=== PATIENT | female | born 1990 | race Caucasian/White ===

== ENCOUNTER → 2017-03-31 | Outpatient (CLI) | payer OTHER ==
[2017-03-31 11:13] LABS: BASO % 0.8 %; BASO ABS # 0.05 K/uL (0-0.2); COMPLETE YES; EOS % 1.4 %; HEMATOCRIT 40.7 % (37-47); IG% 0.2 %; LYMPH % 40.2 %; LYMPH ABS # 2.67 K/uL (1.2-3.4); MEAN CORPUSCULAR HEMOGLOBIN 28.5 pg (25-34); MEAN CORPUSCULAR HGB CONC 33.2 g/dl (32-36); MEAN PLATELET VOLUME 10.1 fL (7.4-10.4); MONO % 7.2 %; NEUT % 50.2 %; PLATELET COUNT 339 K/uL (130-400); RED BLOOD COUNT 4.73 M/uL (4.2-5.4); WHITE BLOOD COUNT 6.65 K/uL (4.8-10.8)
[2017-03-31 11:31] LABS: ALT/SGPT 14 U/L (12-78); BLOOD UREA NITROGEN 11 mg/dl (7-18); BUN/CREATININE RATIO 14.7 (10-20); CALCIUM 9.1 mg/dl (8.5-10.1); CARBON DIOXIDE 25 mmol/L (21-32); CHLORIDE 107 mmol/L (98-107); CHOLESTEROL 167 mg/dl (0-200); CREATININE 0.76 mg/dl (0.60-1.20); GLUCOSE 85 mg/dl (70-99); POTASSIUM 4.2 mmol/L (3.5-5.1); SODIUM 139 mmol/L (136-145); TRIGLYCERIDES 80 mg/dl (0-150); VERY LOW DENSITY LIPOPROT CALC 16 mg/dl
[2017-03-31 11:42] LABS: ALB/GLOB RATIO 0.9 (0.9-2); ALKALINE PHOSPHATASE 101 U/L (45-117); AST/SGOT 14 U/L (15-37); CHOLESTEROL/HDL RATIO 2.4; HDL CHOLESTEROL 71 mg/dl; LDL CHOLESTEROL CALCULATED 80 mg/dl
== END | disposition home or self-care (01) ==
LOC: C.LABBC 09:42
PROVIDERS: ATTEND Neuromusculoskeletal Medicine & OMM
DX: Z00.00 Encounter for general adult medical examination without abnormal findings (principal); F42.9 Obsessive-compulsive disorder, unspecified; E66.9 Obesity, unspecified

== ENCOUNTER → 2017-06-08 | Day surgery (SDC) | payer OTHER ==
[~2017-06-08] VITALS: Ht 170.2 cm; Wt 101.8 kg
[~2017-06-08] MED LIST: ALBU18002; ASPI-390; ATROPINE SULFATE 0.1 MG/ML 5ML SYR IV PRN; BUPIVACAINE/EPINEPHRINE 0.5% MPF 1:200,000 30 ML VIAL ONE; CIPROFLOXACIN / D5W 400 MG IV SCH; CIPROFLOXACIN 400MG / 200ML D5W ONE; CITA10TA4 PO; EpHEDrine SULFATE INJ 50 MG/ML AMP IV PRN; FENTANYL CITRATE INJ 50 MCG/1 ML 2 ML VIAL IV PRN; FENTANYL CITRATE INJ 50 MCG/1 ML 2 ML VIAL ONE; FLUMAZENIL 0.1 MG/1 ML 10 ML VIAL IV PRN; HYDR-5688 PO; HYDROCODONE/ACETAMOPHEN 5/325MG TAB PO PRN; HYDROmorphone INJ 2 MG/ML SYR/VIAL IV PRN; KLN5X; LABETALOL HCL IV 5 MG/ML 20ML IV PRN; LACTATED RINGER'S 1000ML 1,000 ML IV SCH; LIDOCAINE HCL 2% 2 ML VIAL (20MG/ML) ONE; MEPERIDINE HCL 25 MG/ML CARP IV PRN; MIDAZOLAM HCL 1 MG/ML 2ML VIAL ONE; MoRPHine SULFATE 2 MG/ML CARP IV PRN; NALOXONE HCL 0.4 MG/1 ML VIAL/CARP IV PRN; ONDANSETRON INJ 2 MG/ML 2 ML VIAL IV PRN; ONDANSETRON INJ 2 MG/ML 2 ML VIAL ONE; PATIENT'S ALLERGY INFO NEEDS ENTERED SCH; PHENYLEPHRINE 100MCG/ML 5ML SYR IV PRN; PROPOFOL IV EMULSION 10 MG/ML 20 ML VIAL IV ONE; VENL100T2 PO
[2017-06-08 10:11] VITALS: Ht 170.2 cm; Wt 101.8 kg
--- NOTE | 2017-06-08 12:22 | History & Physical Bridge Note ---
H&P Re-Evaluation Bridge Note: I have examined the patient, reviewed the History & Physical and in the interval since the performance of the History & Physical I have noted the following changes of clinical significance: No changes noted
--- NOTE | 2017-06-08 12:39 | Discharge Instructions ---
Discharge Instructions Date of Service Jun 08, 2017. Visit Reason for Visit: Lipoma Upper Back Discharge Discharge Diagnosis / Problem: lipoma excision Discharge Goals Goal(s): Decrease discomfort Activity Recommendations Activity Limitations: as noted below Shower/Bathe: no limitations Anesthesia . Post Anesthesia Instructions: If you have had General Anesthesia or IV Sedation: * Do not drive today. * Resume driving when surgeon permits. * Do not make important decisions or sign legal documents today. * Call surgeon for: 1. Temperature elevations greater than 101 degrees F. 2. Uncontrollable pain. 3. Excessive bleeding. 4. Persistent nausea and vomiting. 5. Medication intolerance (nausea, vomiting or rash). * For nausea and vomiting use only clear liquids such as: tea, soda, bouillon until nausea subsides, then gradually increase diet as tolerated. * If you have any concerns or questions, call your surgeon's office. If physician is unavailable and it is an emergency, call 911 or go to the nearest emergency room. . Instructions / Follow-Up Instructions / Follow-Up Dr. Soria in 1-2 weeks as planned, call [phone] for any questions Diet Recommendations Recommended Home Diet: no limitations Pending Studies Studies pending at discharge: yes List of pending studies: pathology Medical Emergencies . Who to Call and When: Medical Emergencies: If at any time you feel your situation is an emergency, please call 911 immediately. . Non-Emergent Contact Non-Emergency issues call your: Surgeon Call Non-Emergent contact if: you have a fever, temperature is above 101.5, your pain is not controlled, wound has increased redness, you have any medication questions . . "Provider Documentation" section prepared by Uriel Olivarez. .
[2017-06-08 13:15] VITALS: TEMP 36.5
--- NOTE | 2017-06-08 13:17 | [facility] Operative Report ---
Operative Report Operative Date Jun 08, 2017. Pre-Operative Diagnosis Upper Back Lipoma Post-Operative Diagnosis Same Procedure(s) Performed Upper Back Lipoma Excision approx [address] Elías Soria Supervisor Whipped Topping Surgeon(s) Dylon Zeng PA-C Estimated Blood Loss 5 cc Findings simple lipoma Specimens A. Upper Back Lipoma Anesthesia mac/marcaine Complication(s) None Disposition Recovery Room / PACU Description of Procedure After informed consent was obtained the patient was taken to the operating room and placed in a prone position. IV sedation was administered by anesthesia and titrated to effect. The upper back was then sterilely prepped and draped in usual fashion. Marcaine was injected around the area of the visible and palpable lipoma to create a field block. I then made a vertical incision over with a 15 blade scalpel and carried it down through the soft tissue using electrocautery. We found a well encapsulated simple lipoma. I was able used traction countertraction and electrocautery to remove it from surrounding tissue. Was passed off and one piece. Any bleeding points were controlled using electrocautery. We thoroughly irrigated the wound and close it multiple layers using 2-0 Vicryl for the deep layers and 3-0 Monocryl for the skin. Benzoin and Steri-Strips were placed as well as a gauze dressing the patient was awaken and transferred recovery in stable condition. the lesion measured approx 4-5 cm in diameter My physician's community program assistant was present throughout the case. He prepped the patient and assisted with holding retractors as well as traction on the specimen during dissection. He also help close the wound both the deep and superficial layers as well as applied the dressing I attest to the content of the Intraoperative Record and any orders documented therein. Any exceptions are noted below.
--- NOTE | 2017-06-08 13:23 | Anesthesia Progress Nt - [facility] ---
Anesthesia Post Op Note Date & Time Jun 08, 2017 at 13:23 Vital Signs Pain Intensity: 0 Vital Signs Past 12 Hours Date Time Temp Pulse Resp B/P (MAP) Pulse Ox O2 Delivery O2 Flow Rate FiO2 06/08/17 13:15 36.5 104 18 126/81 (96) 98 Room Air 06/08/17 10:11 36.8 102 18 113/71 (85) 98 Room Air Notes Mental Status: alert / awake / arousable, participated in evaluation Pt Amnestic to Procedure: Yes Nausea / Vomiting: adequately controlled Pain: adequately controlled Airway Patency, RR, SpO2: stable & adequate BP & HR: stable & adequate Hydration State: stable & adequate Anesthetic Complications: no major complications apparent
[2017-06-08 13:46] VITALS: BP 124/85; PULSE 94; O2SAT 97
== END | disposition home or self-care (01) ==
LOC: X.SURG 09:41
PROVIDERS: ATTEND Surgery
DX: D17.1 Benign lipomatous neoplasm of skin and subcutaneous tissue of trunk (principal); F41.8 Other specified anxiety disorders; F42.9 Obsessive-compulsive disorder, unspecified; E66.9 Obesity, unspecified; Z79.899 Other long term (current) drug therapy; Z83.3 Family history of diabetes mellitus; Z80.0 Family history of malignant neoplasm of digestive organs; Z82.49 Family history of ischemic heart disease and other diseases of the circulatory system; Z80.42 Family history of malignant neoplasm of prostate

== ENCOUNTER 2017-09-08 23:20 | Emergency (ER) | payer OTHER ==
[~2017-09-08] VITALS: Ht 170.2 cm; Wt 103.8 kg
[~2017-09-08 23:20] MED LIST changes: -ASPI-390; -ATROPINE SULFATE 0.1 MG/ML 5ML SYR IV PRN; -BUPIVACAINE/EPINEPHRINE 0.5% MPF 1:200,000 30 ML VIAL ONE; -CIPROFLOXACIN / D5W 400 MG IV SCH; -CIPROFLOXACIN 400MG / 200ML D5W ONE; -EpHEDrine SULFATE INJ 50 MG/ML AMP IV PRN; -FENTANYL CITRATE INJ 50 MCG/1 ML 2 ML VIAL IV PRN; -FENTANYL CITRATE INJ 50 MCG/1 ML 2 ML VIAL ONE; -FLUMAZENIL 0.1 MG/1 ML 10 ML VIAL IV PRN; -HYDROCODONE/ACETAMOPHEN 5/325MG TAB PO PRN; -HYDROmorphone INJ 2 MG/ML SYR/VIAL IV PRN; -LABETALOL HCL IV 5 MG/ML 20ML IV PRN; -LACTATED RINGER'S 1000ML 1,000 ML IV SCH; -LIDOCAINE HCL 2% 2 ML VIAL (20MG/ML) ONE; -MEPERIDINE HCL 25 MG/ML CARP IV PRN; -MIDAZOLAM HCL 1 MG/ML 2ML VIAL ONE; -MoRPHine SULFATE 2 MG/ML CARP IV PRN; -NALOXONE HCL 0.4 MG/1 ML VIAL/CARP IV PRN; -ONDANSETRON INJ 2 MG/ML 2 ML VIAL IV PRN; -ONDANSETRON INJ 2 MG/ML 2 ML VIAL ONE; -PATIENT'S ALLERGY INFO NEEDS ENTERED SCH; -PHENYLEPHRINE 100MCG/ML 5ML SYR IV PRN; -PROPOFOL IV EMULSION 10 MG/ML 20 ML VIAL IV ONE
[2017-09-08 23:35] VITALS: Ht 170.2 cm; Wt 103.8 kg
--- NOTE | 2017-09-08 23:51 | EMERGENCY ROOM VISIT NOTE ---
History Report prepared by Brandon: Jad Garza Under the Supervision of: Dr. Rajiv Yanes M.D. First contact with patient: 23:40 Chief Complaint: MENTAL HEALTH EVALUATION Stated Complaint: TOOK SOME MEDS, DEPRESSED History of Present Illness The patient is a 27 year old female who presents to the Emergency Room with complaints of drug overdose that occurred 1 hour ago. The patient reports feeling sad for a long time, reports suicidal ideation, and took Melatonin tablets to go to sleep forever after having a verbal altercation. She states she currently feels sleepy. She takes Effexor (75 mg), Citalopram, and Klonopin (prescribed by ). Of note, she has not taken Klonopin in 1 month because she did not refill it. She denies being admitted for depression in the past, speaking with a counselor, or previous episodes of hurting herself. She denies abdominal pain, SOB, back pain, tingling in her hands and toes, urinary symptoms, and . Source of History: patient Onset: 1 hour ago Position: abdomen, other (global) Quality: other (altered mental status) Timing: other (1 episode of suicide attempt) Associated Symptoms: No SOB, No abdominal pain, No back pain, No urinary symptoms Note: Patient denies tingling in her hands and toes. Review of Systems See HPI for pertinent positives & negatives. A total of 10 systems reviewed and were otherwise negative. Social History Smoking Status: Never Smoker Smokeless Tobacco Use: No Alcohol Use: none Housing Status: lives with family, lives with friends Current/Historical Medications Scheduled Citalopram Hydrobromide (Citalopram Hydrobromide), 10 MG PO DAILY Venlafaxine Hcl (Effexor), 75 MG PO BID Allergies Coded Allergies: Cefaclor (Verified Allergy, Unknown, RASH, 09/09/17) Physical Exam Vital Signs Date Time Temp Pulse Resp B/P (MAP) Pulse Ox O2 Delivery O2 Flow Rate FiO2 09/09/17 07:37 36.9 117 18 115/81 100 09/09/17 07:36 36.9 117 18 115/81 100 09/09/17 07:32 117 18 115/81 100 09/09/17 06:19 69 18 98 Room Air 09/09/17 01:23 85 18 118/70 99 Room Air 09/09/17 00:02 85 18 116/80 99 Room Air 09/08/17 23:35 36.9 101 18 164/111 97 Room Air Physical Exam GENERAL: Patient is sad appearing and crying. EYES: No scleral icterus, unremarkable pupils. ENT: Mucous membranes moist, no nasal congestion. NECK: No masses appreciated, no meningismus, trachea is midline. RESPIRATORY: No dyspnea. Clear to auscultation and equal bilaterally. No wheeze , no rhonchi. CARDIOVASCULAR: Regular rate and rhythm. No murmurs, rubs, gallops appreciated. GASTROINTESTINAL: Abdomen soft, nontender, no peritonitis. Bowel sounds positive. No masses appreciated. BACK: No midline tenderness, no CVA tenderness EXTREMITIES: Normal motion all extremities, no cyanosis, no edema. NEUROLOGIC: Alert and oriented, no acute motor or sensory deficits, no focal weakness, cranial nerves grossly intact. SKIN: No rash, no jaundice, no diaphoresis. PSYCH: Patient admits to suicide attempt, suicidal ideation, and depression. Medical Decision & Procedures Laboratory Results 09/09/17 00:33 Red Blood Count 4.47, Mean Corpuscular Volume 83.9, Mean Corpuscular Hemoglobin 28.2, Mean Corpuscular Hemoglobin Concent 33.6, Mean Platelet Volume 9.4, Neutrophils (%) (Auto) 56.5, Lymphocytes (%) (Auto) 33.9, Monocytes (%) (Auto) 7.7, Eosinophils (%) (Auto) 1.2, Basophils (%) (Auto) 0.5, Neutrophils # (Auto) 4.99, Lymphocytes # (Auto) 3.00, Monocytes # (Auto) 0.68, Eosinophils # (Auto) 0.11, Basophils # (Auto) 0.04 09/09/17 00:33 Test 09/08/17 23:50 09/09/17 00:33 Urine Color YELLOW Urine Appearance CLEAR (CLEAR) Urine pH 7.0 (4.5-7.5) Urine Specific [place] 1.021 (1.000-1.030) Urine Protein NEG (NEG) Urine Glucose (UA) NEG (NEG) Urine Ketones NEG (NEG) Urine Occult Blood NEG (NEG) Urine Nitrite NEG (NEG) Urine Bilirubin NEG (NEG) Urine Urobilinogen NEG (NEG) Urine Leukocyte Esterase NEG (NEG) Urine WBC (Auto) 1-5 /hpf (0-5) Urine RBC (Auto) 0-4 /hpf (0-4) Urine Hyaline Casts (Auto) 0 /lpf (0-5) Urine Epithelial Cells (Auto) >30 /lpf (0-5) Urine Bacteria (Auto) 1+ (NEG) Urine Test NEG (NEG) Urine Opiates Screen NEG (NEG) Urine Methadone, Qualitative NEG (NEG) Urine Barbiturates NEG (NEG) Urine Phencyclidine (PCP) Level NEG (NEG) Ur Amphetamine/Methamphetamine NEG (NEG) MDMA (Ecstasy) Screen NEG (NEG) Urine Benzodiazepines Screen NEG (NEG) Urine Cocaine Metabolite NEG (NEG) Urine Marijuana (THC) NEG (NEG) White Blood Count 8.84 K/uL (4.8-10.8) Red Blood Count 4.47 M/uL (4.2-5.4) Hemoglobin 12.6 g/dL (12.0-16.0) Hematocrit 37.5 % (37-47) Mean Corpuscular Volume 83.9 fL (80-100) Mean Corpuscular Hemoglobin 28.2 pg (25-34) Mean Corpuscular Hemoglobin Concent 33.6 g/dl (32-36) Platelet Count 299 K/uL (130-400) Mean Platelet Volume 9.4 fL (7.4-10.4) Neutrophils (%) (Auto) 56.5 % Lymphocytes (%) (Auto) 33.9 % Monocytes (%) (Auto) 7.7 % Eosinophils (%) (Auto) 1.2 % Basophils (%) (Auto) 0.5 % Neutrophils # (Auto) 4.99 K/uL (1.4-6.5) Lymphocytes # (Auto) 3.00 K/uL (1.2-3.4) Monocytes # (Auto) 0.68 K/uL (0.11-0.59) Eosinophils # (Auto) 0.11 K/uL (0-0.5) Basophils # (Auto) 0.04 K/uL (0-0.2) RDW Standard Deviation 40.0 fL (36.4-46.3) RDW Coefficient of Variation 13.1 % (11.5-14.5) Immature Granulocyte % (Auto) 0.2 % Immature Granulocyte # (Auto) 0.02 K/uL (0.00-0.02) Anion Gap 8.0 mmol/L (3-11) Est Creatinine Clear Calc Drug Dose 163.9 ml/min Estimated GFR () 143.0 Estimated GFR (Non- 123.4 BUN/Creatinine Ratio 19.1 (10-20) Calcium Level 8.4 mg/dl (8.5-10.1) Total Bilirubin 0.2 mg/dl (0.2-1) Aspartate Amino Transf (AST/SGOT) 11 U/L (15-37) Alanine Aminotransferase (ALT/SGPT) 20 U/L (12-78) Alkaline Phosphatase 104 U/L (45-117) Total Protein 7.1 gm/dl (6.4-8.2) Albumin 3.3 gm/dl (3.4-5.0) Globulin 3.8 gm/dl (2.5-4.0) Albumin/Globulin Ratio 0.9 (0.9-2) Thyroid Stimulating Hormone (TSH) 2.640 uIu/ml (0.300-4.500) Salicylates Level < 1.7 mg/dl (2.8-20) Acetaminophen Level < 2 ug/ml (10-30) Ethyl Alcohol mg/dL < 3.0 mg/dl (0-3) Laboratory results as reviewed by me. Medications Administered Medications (Trade) Dose Ordered Sig/Adrienne Route Start Time Stop Time Status Last Admin Dose Admin Venlafaxine HCl (effeXOR TAB) 75 mg BID STAT PO 09/09/17 00:00 09/09/17 00:02 DC 09/09/17 00:00 75 MG ECG Per My Interpretation Indication: altered mental status, other (drug overdose) Rate (beats per minute): 83 Rhythm: normal sinus Findings: no acute ischemic change, no ectopy, other (QTc of 439; QRS of 100) ED Course 2340: The patient was evaluated in room A6. A complete history and physical exam was performed. 2350: I spoke with poison control. They agree with plan of care for the patient. 0151: I checked on the patient and she is stable. I spoke with the Case Manger. We are awaiting placement for mental health facility. 0300: Upon reevaluation, the patient is doing well. Discussed results and treatment plan with the patient. She verbalized understanding and agreement with the treatment plan. The patient will be evaluated for further management. 0411: The patient was accepted to the [facility]. Medical Decision Differential: Mood Disorder, Overdose, Infectious, Electrolyte Abnormality, Cardiac, Hepatic, Endocrine, Toxicologic, Neurologic, amongst other pathologies entertained. 27 yr old female with several weeks worsening depression who admits that she attempted to kill self by overdosing on melatonin so she would fall asleep, however she just feels groggy. She is well appearing and other than sad/ depressed in no distress. Labs, ekg unremarkable. Tyl/Jackson negative. Drug screen etoh clear. Given her nightly dose of Effexor. She was medically cleared and accepted to [place] for further management/treatment. Head Trauma GCS Score: 15 Medication Reconcilliation Current Medication List: was personally reviewed by me Blood Pressure Screening Patient's blood pressure: Elevated blood pressure Blood pressure disposition: Elevated BP felt to be situational Consults Time Called: 0150 Consulting Physician: [facility] Mental Health Clinical Audiologist Returned Call: [phone] Discussed the patient's case. The patient will be evaluated for further treatment and disposition. Impression Primary Impression: Suicide attempt Additional Impression: Depression Scribe Attestation The scribe's documentation has been prepared under my direction and personally reviewed by me in its entirety. I confirm that the note above accurately reflects all work, treatment, procedures, and medical decision making performed by me. Departure Information Referrals Frderick Armenta D.O. (PCP) Patient Instructions My [facility] Problem Qualifiers
[2017-09-09] MEDS ORDERED: VENLAFAXINE HCL 50 MG TAB PO STA
[2017-09-09 00:53] LABS: BASO % 0.5 %; BASO ABS # 0.04 K/uL (0-0.2); EOS % 1.2 %; EOS ABS # 0.11 K/uL (0-0.5); HEMATOCRIT 37.5 % (37-47); HEMOGLOBIN 12.6 g/dL (12.0-16.0); IG# 0.02 K/uL (0.00-0.02); LYMPH % 33.9 %; MEAN CELL VOLUME 83.9 fL (80-100); MEAN CORPUSCULAR HEMOGLOBIN 28.2 pg (25-34); MEAN CORPUSCULAR HGB CONC 33.6 g/dl (32-36); MEAN PLATELET VOLUME 9.4 fL (7.4-10.4); MONO % 7.7 %; MONO ABS # 0.68 K/uL (0.11-0.59); NEUT % 56.5 %; NEUT ABS # 4.99 K/uL (1.4-6.5); PLATELET COUNT 299 K/uL (130-400); RED CELL DISTRIBUTION WIDTH CV 13.1 % (11.5-14.5); WHITE BLOOD COUNT 8.84 K/uL (4.8-10.8)
[2017-09-09 01:14] LABS: ALBUMIN 3.3 gm/dl (3.4-5.0); CALCIUM 8.4 mg/dl (8.5-10.1); CREATININE 0.65 mg/dl (0.60-1.20); POTASSIUM 3.5 mmol/L (3.5-5.1)
[2017-09-09 01:24] LABS: TOTAL PROTEIN 7.1 gm/dl (6.4-8.2)
[2017-09-09] MEDS ORDERED: EFF75 PO (03:10)
[2017-09-09 07:37] VITALS: BP 115/81; PULSE 117; TEMP 36.9; O2SAT 100
[2017-09-09] MEDS ORDERED: VENLAFAXINE HCL 50 MG TAB PO SCH (09:00)
[2017-09-09] MEDS ORDERED: CITALOPRAM 20 MG TAB PO SCH (09:00)
== END 2017-09-09 07:37 ==
LOC: C.EDB 23:21 → C.EDA 09-09 07:37
DX: T38.892A Poisoning by other hormones and synthetic substitutes, intentional self-harm, initial encounter (principal); F32.9 Major depressive disorder, single episode, unspecified; Z88.1 Allergy status to other antibiotic agents